=== PATIENT | male | born 1965 | race Caucasian/White ===

== ENCOUNTER 2017-03-13 00:02 | Emergency (ER) | payer MEDICAID ==
[~2017-03-13] VITALS: Ht 177.8 cm; Wt 79.4 kg
[2017-03-13 09:27] VITALS: BP 130/79
[2017-03-13] MEDS ORDERED: ARTIFICIAL TEARS 15ml EACHEYE ONE (10:15)
== END 2017-03-13 10:55 | disposition home or self-care (01) ==
LOC: ER 00:02
DX: S02.612A Fracture of condylar process of left mandible, initial encounter for closed fracture (principal); S02.632A Fracture of coronoid process of left mandible, initial encounter for closed fracture; S02.642A Fracture of ramus of left mandible, initial encounter for closed fracture; S01.112A Laceration without foreign body of left eyelid and periocular area, initial encounter; Y08.89XA Assault by other specified means, initial encounter; Y93.89 Activity, other specified; Y92.89 Other specified places as the place of occurrence of the external cause; Y99.8 Other external cause status
CPT/HCPCS: 12011; 70450; 70486